=== PATIENT | female | born 1965 | race American Indian/Alaskan Native ===

== ENCOUNTER 2018-09-15 06:00 | Day surgery (SDC) | payer BC ==
[2018-09-07 14:43] VITALS: BMI 34.4
[2018-09-15] MEDS ORDERED: Midazolam 2 MG/2 ML VIAL ONE (08:10)
[2018-09-15] MEDS ORDERED: Propofol 10 mg/ml Inj (20 ML) ONE (08:10)
[2018-09-15] MEDS ORDERED: Lidocaine 4% (Laryng-O-Jet) Kit MM ONE (08:19)
[2018-09-15] MEDS ORDERED: HYDROmorphone 0.5 mg/0.5 ml ISec IVP PRN (09:06)
[2018-09-15 09:18] VITALS: TEMP 97.8; O2SAT 100
[2018-09-15 09:39] VITALS: PULSE 74; RESP 14
[2018-09-15 11:17] VITALS: BP 129/68
--- NOTE | 2018-09-15 19:03 | OP ---
PROCEDURE DATE: 09/15/2018 PREOPERATIVE DIAGNOSES: Abnormal uterine bleeding, endometrial polyp. POSTOPERATIVE DIAGNOSES: Abnormal uterine bleeding, uterine septum submucosal myoma. PROCEDURE PERFORMED: Operative hysteroscopy, uterine wall resection, dilation and curettage. SURGEON: Bhavya Newman MD ANESTHESIA: General LMA. ESTIMATED BLOOD LOSS: 5 mL. BLOOD PRODUCTS: None. COMPLICATIONS: None. OPERATIVE FINDINGS: An 8-week size uterus noted with uterine septum noted with posterior myoma protruding into cavity, bilateral ostia visualized, MyoSure device used, careful resection. FLUID DEFICIT: 250 mL. SPECIMENS SENT TO PATHOLOGY: Endocervical curettings, endometrial curettings, submucosal myoma, uterine wall. DESCRIPTION OF PROCEDURE: The patient was taken to the operating room where she was given general anesthesia. Once it was found to be adequate, she was placed on the operating table in dorsal supine position with legs supported using stirrups. The patient was then prepped and draped in the usual sterile fashion. A time-out confirmed correct patient and correct procedure. A red rubber catheter was then inserted in the urethra to drain the bladder. Following this, bimanual exam was performed as mentioned. A Jon retractor was placed in the anterior and posterior fornix of the vagina. Cervix was adequately visualized. A single-tooth tenaculum was placed on the anterior lip of the cervix. Endocervical curettings were obtained with a John curette and sent to Pathology on [facility]. The uterus was then sounded to 10 cm, following which the cervix was sequentially dilated carefully. The hysteroscope was then inserted under direct visualization using normal saline as distention media. Upon insertion, there was resistance noted in urethral wall where adhesive band appeared to be noted blocking the entrance of the cavity. The MyoSure device was carefully used and inserted with careful resection to allow for entry into the cavity in which the myoma appeared, which was carefully resected. The MyoSure device was removed. A gentle curettage was done. All instruments removed. There was good hemostasis at the tenaculum puncture site. At end of the procedure, all needle, sponge, and instrument counts were noted and correct x2. The patient tolerated the procedure well and was transferred to the recovery room in stable condition. Bhavya Newman MD [facility] # [id number]
== END 2018-09-15 11:16 | disposition home or self-care (01) ==
LOC: C.SDS 06:00
PROVIDERS: ATTEND Obstetrics & Gynecology
DX: D25.0 Submucous leiomyoma of uterus (principal); N72 Inflammatory disease of cervix uteri; N93.9 Abnormal uterine and vaginal bleeding, unspecified; I10 Essential (primary) hypertension; E11.9 Type 2 diabetes mellitus without complications; J45.909 Unspecified asthma, uncomplicated
CPT/HCPCS: 58558; 88305; J1100; J1170; J2250; J2405; J2704; J3010